=== PATIENT | female | born 1985 | race Two or more races ===

== ENCOUNTER 2019-03-17 22:50 | Emergency (ER) | payer MEDICAID ==
[~2019-03-17] VITALS: Ht 160 cm; Wt 72.6 kg
[2019-03-17 23:38] LABS: Basophils # (auto) 0 uL; Basophils % (auto) 0.3 % (0.0-2.0); Eosinophils # (auto) 0 uL; Eosinophils % (auto) 0.1 % (0.0-7.0); Hematocrit 46.5 % (36.0-46.0); Hemoglobin 15.5 g/dL (12.2-16.2); Lymphocytes # (auto) 0.7 uL; Lymphocytes % (auto) 6.4 % (10.0-50.0); Mean Corpuscular Hemoglobin 30.7 pg (28.0-32.0); Mean Corpuscular Hgb Conc. 33.3 g/dL (32.0-36.0); Mean Corpuscular Volume 92.3 fL (80.0-100.0); Monocytes # (auto) 0.6 uL; Monocytes % (auto) 5.1 % (0.0-12.0); Neutrophils % (auto) 88.1 % (37.0-80.0); Platelet Count (auto) 102 10^3/uL (140-450); Red Blood Cells 5.04 10^6/uL (4.0-5.20); Red Cell Distribution Width 13.4 % (11.8-14.3); White Blood Cell 11.4 10^3/uL (4.4-10.8)
[2019-03-17 23:51] LABS: Urine WBC None Seen /hpf (0 - 5)
[2019-03-17 23:59] LABS: Albumin 3.8 g/dL (3.4-5.0); BUN/Creatinine Ratio 9.2; Calcium 8.8 mg/dL (8.5-10.1); Potassium 3.5 mmol/L (3.5-5.1)
[2019-03-18] LABS: Amylase 43 U/L (25-115); Lipase 61 U/L (73-393)
[2019-03-18 00:02] LABS: Bilirubin, Total 0.6 mg/dL (0.2-1.0); Total Protein 7.7 g/dL (6.4-8.2)
[2019-03-18 00:06] LABS: Urine Bacteria NONE SEEN /hpf (None Seen); Urine Blood Negative /uL (Negative); Urine Specific Gravity 1.015 (1.001-1.035)
[2019-03-18 03:31] VITALS: BP 101/64
[2019-03-18] MEDS ORDERED: ONDANSETRON HCL 4 MG/2 ML VIAL IV ONE (03:45)
[2019-03-18] MEDS ORDERED: metroNIDAZOLE 500MG/100ML 100 ML IV ONE (03:45)
[2019-03-18] MEDS ORDERED: SODIUM CHLORIDE 0.9% 1,000 ML IV ONE (03:45)
[2019-03-18] MEDS ORDERED: MORPHINE SULFATE 4 MG/ML SYR/VIAL IV ONE (03:45)
[2019-03-18] MEDS ORDERED: cefTRIAXone 1GM/50ML D5W 50 ML IV ONE (03:45)
== END 2019-03-18 05:11 | disposition home or self-care (01) ==
LOC: ER 22:50
DX: K52.9 Noninfective gastroenteritis and colitis, unspecified (principal); I88.0 Nonspecific mesenteric lymphadenitis; Z98.51 Tubal ligation status
CPT/HCPCS: 36415; 74176; 80053; 81001; 82150; 83690; 85025; 96365; 96368; 96375; 99284; J0696; J2270; J2405; J3490; J7030

== ENCOUNTER 2020-11-21 20:58 | Emergency (ER) | payer MEDICAID ==
[~2020-11-21] VITALS: Ht 162.6 cm; Wt 77.1 kg
[2020-11-22] MEDS ORDERED: ACETAMINOPHEN/CODEINE#3 (300/30mg) TAB PO ONE (02:15)
[2020-11-22] MEDS ORDERED: ONDANSETRON ODT 4 MG TAB PO ONE (02:15)
[2020-11-22 02:24] VITALS: BP 126/87
== END 2020-11-22 03:42 | disposition home or self-care (01) ==
LOC: ER 20:59
DX: G43.909 Migraine, unspecified, not intractable, without status migrainosus (principal)
CPT/HCPCS: 70450; 81025; 99284; Q0162